=== PATIENT | female | born 1990 | race Caucasian/White ===

== ENCOUNTER 2018-11-20 00:28 | Emergency (ER) | payer OTHER ==
[2018-11-20 00:41] VITALS: TEMP 97.8
[2018-11-20] MEDS ORDERED: ALBUTEROL NEBULIZED 2.5 MG/3 ML INHALATION STA (01:16)
--- NOTE | 2018-11-20 01:38 | XR ---
EXAM: XR Chest, 2 Views CLINICAL HISTORY: ITS.REASON XR Reason: dyspnea TECHNIQUE: Frontal and lateral views of the chest. COMPARISON: No relevant prior studies available. FINDINGS: Lungs: No consolidation or mass. Pleural space: No effusion. Heart: No cardiomegaly. Mediastinum: Unremarkable. Bones/joints: No acute findings. IMPRESSION: No acute cardiopulmonary process.
[2018-11-20 01:44] VITALS: BP 114/83; RESP 18
[2018-11-20] MEDS ORDERED: ACETAMINOPHEN TAB 325 MG TAB PO STA (01:45)
--- NOTE | 2018-11-20 02:14 | ED ---
SOB HPI - General Chief Complaint: Shortness of Breath Stated Complaint: Diff Breathing Time Seen by Provider: 11/20/18 00:58 Source: patient Mode of arrival: ambulatory Limitations: no limitations - History of Present Illness MD Complaint: shortness of breath, cough, "asthma attack" Onset/Timin -: days(s) Consistency: constant Improves With: nothing Worsens With: nothing Known History Of: asthma Associated Symptoms: denies other symptoms Treatments Prior to Arrival: bronchodilator - Related Data Home Oxygen Therapy: No Previous Rx's Medication Instructions Recorded Albuterol Inhaler [Ventolin Hfa 1 - 2 puff INHALATION Q6HR PRN #1 11/20/18 Inhaler] inhaler Allergies Allergy/AdvReac Type Severity Reaction Status Date / Time No Known Allergies Allergy Verified 11/20/18 00:41 Review of Systems ROS Statement: Those systems with pertinent positive or pertinent negative responses have been documented in the HPI. ROS Other: All systems not noted in ROS Statement are negative. Constitutional: Denies: fever, chills, weakness Respiratory: Reports: cough, dyspnea, wheezes Cardiovascular: Denies: chest pain, palpitations, dyspnea on exertion Gastrointestinal: Denies: abdominal pain, nausea, vomiting, diarrhea Genitourinary: Denies: dysuria, hematuria Musculoskeletal: Denies: back pain Skin: Denies: rash Neurological: Denies: headache Past Medical History Past Medical History: Asthma History of Any Multi-Drug Resistant Organisms: None Reported Past Surgical History: No Surgical Hx Reported Past Psychological History: ADD/ADHD, Anxiety Smoking Status: Current every day smoker Past Alcohol Use History: None Reported Past Drug Use History: None Reported General Exam Limitations: no limitations General appearance: alert, in no apparent distress Head exam: Present: atraumatic, normocephalic Eye exam: Present: normal appearance. Absent: scleral icterus, conjunctival injection ENT exam: Present: normal oropharynx Neck exam: Present: normal inspection Respiratory exam: Present: wheezes. Absent: respiratory distress, rales, rhonchi, stridor Cardiovascular Exam: Present: regular rate, normal rhythm, normal heart sounds. Absent: systolic murmur, diastolic murmur, rubs, gallop GI/Abdominal exam: Present: soft. Absent: tenderness Extremities exam: Present: normal inspection, normal capillary refill. Absent: pedal edema, calf tenderness Back exam: Present: normal inspection. Absent: CVA tenderness (R), CVA tenderness (L) Neurological exam: Present: alert Skin exam: Present: warm, dry, intact, normal color. Absent: rash Course Vital Signs 11/20/18 11/20/18 11/20/18 00:38 00:41 01:41 Temperature 97.8 F 97.8 F Pulse Rate 76 69 Respiratory 22 18 18 Rate Blood Pressure 119/79 114/83 O2 Sat by Pulse 100 98 Oximetry 11/20/18 11/20/18 02:17 02:25 Temperature Pulse Rate 72 80 Respiratory Rate Blood Pressure O2 Sat by Pulse Oximetry Disposition Clinical Impression: Bronchospasm, acute Disposition: HOME SELF-CARE Condition: Good Instructions (If sedation given, give patient instructions): Bronchospasm (ED) Prescriptions: Albuterol Inhaler [Ventolin Hfa Inhaler] 1 - 2 puff INHALATION Q6HR PRN #1 inhaler PRN Reason: Wheezing Is patient prescribed a controlled substance at d/c from ED?: No Referrals: Liat Pelayo, DO [Primary Care Provider] - 1-2 days
[2018-11-20 02:27] VITALS: PULSE 80
== END 2018-11-20 02:27 | disposition home or self-care (01) ==
LOC: EC 00:28
DX: J45.909 Unspecified asthma, uncomplicated (principal); F17.200 Nicotine dependence, unspecified, uncomplicated
CPT/HCPCS: 71046; 94640; 99285

== ENCOUNTER 2024-03-04 15:07 | Emergency (ER) | payer OTHER ==
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
[2024-03-04 15:23] VITALS: TEMP 98.1
[2024-03-04 16:05] LABS: Appearance,Urine Cloudy (Clear); Bacteria,Urine Occasional /hpf; Bilirubin,Urine Negative (Negative); Blood,Urine Negative (Negative); Color,Urine Light Yellow; Glucose,Urine (UA) Negative (Negative); Ketones,Urine Negative (Negative); Leukocyte Esterase,Urine Trace (Negative); Mucus,Urine Few /hpf; Nitrite,Urine Negative (Negative); PH, Urine 5.5 (5.0-8.0); Protein,Urine Negative (Negative); RBC,Urine 1 /hpf (0-5); Specific Gravity,Urine 1.018 (1.001-1.035); Squamous Epithelial Cell,Urine 10 /hpf (0-4); Urobilinogen,Urine <2.0 mg/dL (<2.0); WBC,Urine 3 /hpf (0-5)
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
[2024-03-04] MEDS: ACETAMINOPHEN TAB 500 MG TAB PO STA (16:28)
[2024-03-04] MEDS: IBUPROFEN 800 MG TAB PO STA (16:29)
[2024-03-04 19:34] VITALS: BP 124/76; PULSE 80; RESP 18
== END 2024-03-04 17:13 | disposition home or self-care (01) ==
LOC: EC 15:07
DX: M54.6 Pain in thoracic spine (principal); V43.62XA Car passenger injured in collision with other type car in traffic accident, initial encounter; Y92.410 Unspecified street and highway as the place of occurrence of the external cause
CPT/HCPCS: 71045; 72070; 72170; 81001; 81025; 99284